=== PATIENT | male | born 1985 | race Caucasian/White ===

== ENCOUNTER 2018-10-11 17:54 | Emergency (ER) | payer OTHER ==
[~2018-10-11] VITALS: Wt 73.4 kg
[2018-10-11 17:57] VITALS: BP 152/90; PULSE 90; RESP 18
[2018-10-11] MEDS ORDERED: IBUP800T48 PO (19:41)
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
[2018-10-11] MEDS ORDERED: IBUPROFEN 800 MG TAB PO ONE (20:00)
== END 2018-10-11 19:49 | disposition home or self-care (01) ==
LOC: E/R 17:54
DX: S13.4XXA Sprain of ligaments of cervical spine, initial encounter (principal); V89.2XXA Person injured in unspecified motor-vehicle accident, traffic, initial encounter
CPT/HCPCS: Z7502; Z7610; 99282